=== PATIENT | male | born 1990 | race Caucasian/White ===

== ENCOUNTER 2021-03-28 17:17 | Emergency (ER) | payer SELFPAY ==
--- NOTE | 2021-03-28 18:09 | ER ---
Nurse's Notes [facility] Name: Mauri Khoury Age: 30 yrs Sex: Male : 1990 Arrival Date: 03/28/2021 Time: 17:20 Bed Waiting Private MD: Diagnosis: Presentation: 03/28 17:29 Chief complaint: Patient states: yesterday was scraping around his house and thinks he sv got something in his R eye. Redness and tearing noted. Risk Assessment: Do you want to hurt yourself or someone else? Patient reports no desire to harm self or others. Onset of symptoms was March 27, 2021. 17:29 Method Of Arrival: Ambulatory sv 17:29 Acuity: PARAG 3 sv 17:30 Coronavirus screen: Vaccine status: Patient reports receiving the 2nd dose of the covid sv vaccine. Patient reports receiving the 1st dose of the Covid vaccine. Client denies travel out of the [place] in the last 14 days. Ebola Screen: No symptoms or risks identified at this time. Initial Sepsis Screen: Does the patient meet any 2 criteria? No. Patient's initial sepsis screen is negative. Does the patient have a suspected source of infection? No. Patient's initial sepsis screen is negative. Triage Assessment: 17:31 General: Appears in no apparent distress. uncomfortable, Behavior is calm, cooperative, sv appropriate for age. EENT: Sclera/Cornea are reddened in right eye. Neuro: Level of Consciousness is awake, alert, obeys commands, Gait is steady. Respiratory: Respiratory effort is even, unlabored. Historical: - Allergies: 17:30 NKA; sv - PMHx: 17:30 None; sv - PSHx: 17:30 None; sv - Immunization history:: Adult Immunizations up to date. - Social history:: Smoking status: Patient reports the use of cigarette tobacco products, smokes one pack cigarettes per day. Vital Signs: 17:30 BP 117 / 71; Pulse 88; Resp 18; Temp 98.2; Pulse Ox 100% ; Weight 81.65 kg; Height 5 sv ft. 7 in. (170.18 cm); Pain 2/10; 17:30 Body Mass Index 28.19 (81.65 kg, 170.18 cm) sv ED Course: 17:20 Patient arrived in ED. am2 17:30 Triage completed. sv 17:30 Arm band placed on. sv 17:50 Patient's name was called from ER lobby. No response. sv 17:59 Yvonne Pretty, RN is Primary Nurse. ap3 18:00 Patient's name was called from ER lobby. No response. sv 18:08 Patient's name was called from ER lobby. No response. sv Administered Medications: No medications were administered Outcome: 18:08 Patient left the ED. sv Signatures: Janeth Hensley RN RN sv Yvonne Mendosa am2 Yvonne Pretty, RN RN ap3 Corrections: (The following items were deleted from the chart) 17:32 17:30 Resp 18bpm; Temp 98.2F; 81.65 kg; Height 5 ft. 7 in.; BMI: 28.1; Pain 2/10; sv sv
[2021-03-28 18:20] VITALS: BP 117/71; TEMP 98.2; O2SAT 100
== END 2021-03-28 18:08 | disposition left against medical advice (07) ==
LOC: ER 17:17
DX: Z53.21 Procedure and treatment not carried out due to patient leaving prior to being seen by health care provider (principal)
CPT/HCPCS: 99281